=== PATIENT | female | born 1945 | race Asian ===

== ENCOUNTER 2021-12-17 22:04 | Emergency (ER) | payer OTHER, MEDICARE ==
[~2021-12-17] VITALS: Ht 157.5 cm; Wt 59.0 kg
[2021-12-17 22:10] VITALS: BP_SYST 175
--- NOTE | 2021-12-17 22:10 | NUR ---
Patient triaged and placed in [facility] gurney. VSS and patient appears in no acute distress at this time. Accompanied by emt, awaiting available bed, and MD notified of need for MSE.
--- NOTE | 2021-12-17 22:22 | NUR ---
Performed EKG on patient, printed, and given to MD for review.
--- NOTE | 2021-12-18 00:30 | NUR ---
ER examining patient in the [facility].
--- NOTE | 2021-12-18 00:56 | NUR ---
Patient to ER bed 6 to gown for evaluation. Side rails up. Report given to Porsha HOOVER.
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
[2021-12-18 01:21] LABS: EOSINOPHILS # (AUTO) 0.1 K/uL (0.0-0.4)
[2021-12-18 01:43] LABS: ANION GAP 4 (5-15); CALCIUM 9.2 mg/dL (8.4-11.0); CHLORIDE 102 mmol/L (98-107); CREATININE 0.71 mg/dL (0.55-1.30); GLUCOSE 221 mg/dL (70-99); POTASSIUM 3.8 mmol/L (3.5-5.1); SODIUM SERUM 136 mmol/L (136-145); UREA NITROGEN, BLOOD 27 mg/dL (8-21)
[2021-12-18 01:45] LABS: BASOPHILS % (AUTO) 0.3 % (0.0-2.0); HEMATOCRIT 42.8 % (36-48); HEMOGLOBIN 14.2 g/dL (12.0-16.0); LYMPHOCYTES # (AUTO) 1.3 K/uL (1.0-5.5); LYMPHOCYTES % (AUTO) 11.4 % (20.5-51.5); MEAN CORPUSCULAR HEMOGLOBIN 31 pg (27-31); MEAN CORPUSCULAR HGB CONC 33 % (32-36); MEAN CORPUSCULAR VOLUME 92 fL (79.0-98.0); MONOCYTES # (AUTO) 0.7 K/uL (0.0-1.0); MONOCYTES % (AUTO) 6.2 % (1.7-9.3); NEUTROPHILS # (AUTO) 9.3 K/uL (1.8-7.7); NEUTROPHILS % (AUTO) 81.1 % (40.0-70.0); PLATELET COUNT (AUTO) 291 K/uL (130-430); RED BLOOD CELL COUNT(AUTO) 4.63 MIL/uL (4.2-6.2); RED CELL DISTRIBUTION WIDTH 12.7 % (9.0-15.0); WHITE BLOOD COUNT (AUTO) 11.4 K/uL (4.8-10.8)
--- NOTE | 2021-12-18 01:45 | NUR ---
patient resting quietly in bed. No acute distress noted.
[2021-12-18 01:52] LABS: ALANINE AMINOTRANSFERASE 23 U/L (12-78); ALBUMIN 3.5 g/dL (3.4-4.8); ASPARTATE AMINOTRANSFERASE 24 U/L (10-37); TOTAL BILIRUBIN 0.3 mg/dL (0.0-1.0)
[2021-12-18] MEDS ORDERED: MORPHINE 4 MG INJ. 4 MG/ML VIAL IVP ONE ×2 (02:15→04:00)
--- NOTE | 2021-12-18 02:22 | NUR ---
# 20 gauge angiocath placed to LAC. Use of asceptic technique. Opsite placed over site. Blood return noted. Flushed with 10 cc of normal saline. No evidence of infiltration noted. Patient tolerated well.
--- NOTE | 2021-12-18 02:47 | NUR ---
Patient off unit to CT scan.
--- NOTE | 2021-12-18 03:40 | NUR ---
RECEIVED REPORT FROM VÍCTOR HOOVER
[2021-12-18] MEDS ORDERED: MORPHINE 4 MG INJ. 4 MG/ML VIAL ONE (04:05)
--- NOTE | 2021-12-18 04:23 | NUR ---
RIGHT SHORT ARM SPLINT APPLIED. CMS INTACT. PT GIVEN SPLINT EDUCATION. VERBALIZED UNDERSTANDING.
--- NOTE | 2021-12-18 05:00 | NUR ---
Patient resting quietly. No acute distress noted. VSS.
[2021-12-18] MEDS ORDERED: HYDR-3917 PO (06:27)
--- NOTE | 2021-12-18 06:43 | NUR ---
Patient given written and verbal discharge instructions and verbalizes understanding. ER MD discussed with patient the results and treatment provided. Patient in stable condition. ID arm band removed. IV catheter removed intact and dressing applied, no active bleeding. Rx of NORCO given. Patient educated on pain management and to follow up with PMD. Pain Scale 0. Opportunity for questions provided and answered. Medication side effect fact sheet provided.
[2021-12-18 06:44] VITALS: BP_SYST 115
== END 2021-12-18 06:43 | disposition home or self-care (01) ==
LOC: SED 22:04
DX: S62.101A Fracture of unspecified carpal bone, right wrist, initial encounter for closed fracture (principal); S30.1XXA Contusion of abdominal wall, initial encounter; N85.00 Endometrial hyperplasia, unspecified; R73.9 Hyperglycemia, unspecified; V49.88XA Car occupant (driver) (passenger) injured in other specified transport accidents, initial encounter; Y93.89 Activity, other specified; Y92.488 Other paved roadways as the place of occurrence of the external cause; Y99.8 Other external cause status; Z88.2 Allergy status to sulfonamides
CPT/HCPCS: 29125; 36415; 71045; 71260; 73110; 74177; 76376; 80053; 83880; 84484; 85025; 86886; 86900; 86901; 93005; 96374; 96376; 99285; J2270; Q9967; 96375